=== PATIENT | female | born 2000 | race Caucasian/White ===

== ENCOUNTER 2021-02-15 10:11 | Outpatient (CLI) | payer BC, MEDICAID, SELFPAY ==
--- NOTE | 2021-02-17 12:57 | P.PCNHOL_ITS ---
Holter/Event Monitor Holter/Event Monitor Date of procedure: 02/15/21 Procedure Type: 24 hour holter monitor Indications: Increased Heart rate Conclusion: 1. 24 hour holter monitor on 02/15/21. 2. Underlying rhythm is sinus rhythm. HR range 56-154 bpm; average HR 89 bpm. 3. There are 11 premature supraventricular complexes. No supraventricular tachycardia. 4. No premature ventricular complexes. No ventricular tachycardia. 5. No sinoatrial or atrioventricular blocks. No significant pauses greater than 2 seconds. 6. Patient reports symptoms of shortness of breath and dizziness which demonst rate sinus rhythm, HR range 99-119 bpm.
== END 2021-02-15 10:12 | disposition home or self-care (01) ==
PROVIDERS: PCP Pediatrics; Visit Provider Advanced Practice Midwife
DX: R00.0 Tachycardia, unspecified (principal)
CPT/HCPCS: 93225; 93226

== ENCOUNTER 2021-06-23 10:35 | Inpatient (IN) | payer BC, OTHER, SELFPAY ==
[2021-06-23] VITALS (27 sets, daily range): BP systolic 99–169; BP diastolic 55–108; PULSE 61–107; RESP 16–18; TEMP 36.2–36.8; BMI 27.9
--- NOTE | 2021-06-23 12:04 | LDADM ---
This patient, Dwayne Rouse, was admitted to Labor/Delivery/Recovery 107 on 06/23/21 at 10:35. Plans for labor, pain management and were discussed with patient. Patient/family oriented to hospital policies and general routines including ID bracelet, bed and alarms, visiting hours, pain management, procedures, bathroom and other care routines, personal items, smoking policy, room service/diet and guest tray routines, security routines, and visiting hours. Patient/Family are encouraged to report perceived risks to care and to ask questions if they do not understand what they are told or what they should do. See OBIX for further documentation.
[2021-06-23 12:09] LABS: Basophils Absolute Auto 0.1 K/mm3 (0.0-0.1); Basophils Percent Auto 0.5 % (0.2-1.2); Eosinophils Absolute Auto 0.1 K/mm3 (0-0.3); Eosinophils Percent Auto 0.3 % (0-4.4); Hemoglobin 10.7 g/dL (12.0-15.0); Immature Granulocyte Absolute 0.15 K/mm3 (0.00-0.031); Lymphocytes Absolute Auto 1.89 K/mm3 (0.9-3.2); Lymphocytes Percent Auto 12.6 % (18.3-44.2); Mean Corpuscular HGB Conc 32.4 g/dl (32-36); Mean Corpuscular Hemoglobin 28.4 pg (26-34); Mean Corpuscular Volume 87.5 fl (80-100); Mean Platelet Volume 11.5 fl (7.4-10.4); Monocytes Absolute Auto 0.8 K/mm3 (0.1-0.6); Monocytes Percent Auto 5.2 % (2.6-8.5); Neutrophils Absolute Auto 12.1 K/mm3 (1.3-6.7); Neutrophils Percent Auto 80.4 % (45.5-73.1); Platelet Count Result 265 k/mm3 (150-375); Red Blood Count 3.77 M/mm3 (4.2-5.4); White Blood Count 15.1 K/mm3 (4.5-10.0)
[2021-06-23] MEDS: OXYTOCIN 30 UNITS/NS 500 ML 30 UNITS/500 ML BAG 125 UNITS IV CONT (13:51)
[2021-06-23 14:11] LABS: Barbiturate Screen Urine Negative (Negative); Benzodiazepines Screen Urine Negative (Negative)
[2021-06-23 14:14] LABS: Amphetamine Screen Urine Negative (Negative); Cannabinoid Screen Urine Positive (Negative); Cocaine Screen Urine Negative (Negative); Methadone Screen Urine Negative (Negative); Opiate Screen Urine Negative (Negative); Phencyclidine Screen Urine Negative (Negative)
--- NOTE | 2021-06-23 14:26 | PM.OBPRVD ---
OB - Delivery Note Procedure Delivery date: 06/23/21 Procedure: vaginal delivery Induction method: none Delivery augmentation: rupture of membranes Delivery monitor: external FHT and external uterine Route of delivery: Episiotomy description: None Laceration Description: None Specimen: No Quantitative Blood Loss (ml): 117 Anesthesia type: None Disposition: floor Baby Date of : 06/23/21 Time of : 13:46 Weeks of gestation at delivery: 38 gender: Female Weight (pounds): 7 Weight (ounces): 3 presentation: vertex position: Left Occiput Anterior Placenta delivery description: Spontaneous cord vessel description: 3 Vessels, Tight (x2) and Clamped/Cut (at perineum) score one minute: 4 score five minutes: 7 Narrative: baby to warmer due to tight nuchal x 2
[2021-06-23] MEDS: IBUPROFEN 600 MG TABLET PO (16:55)
--- NOTE | 2021-06-23 17:12 | OBPPTRN ---
Patient ambulated to post room #286 . Support person present. Oriented to unit, room, information board, rooming in, admission packet and security measures. Patient verbalizes understanding.
[2021-06-24] VITALS: BP 130/64; PULSE 72; RESP 18; TEMP 36.8
[2021-06-24 04:36] VITALS: BP 109/70; PULSE 58; RESP 18; TEMP 36.6
[2021-06-24 05:36] LABS: Hematocrit 28.9 % (37.0-47.0); Hemoglobin 9.5 g/dL (12.0-15.0)
--- NOTE | 2021-06-24 06:27 | PM.OBPNVD ---
OB - PN: Subj Subjective Date/time seen: 06/24/21 06:27 Patient comments: no complaints baby status: doing well OB - PN: Obj Data Labs CBC & Chem 7: 06/24/21 03:59 Labs: Laboratory Results - last 24 hr 06/23/21 06/23/21 06/23/21 12:00 12:00 13:13 WBC 15.1 H RBC 3.77 L Hgb 10.7 L Hct 33.0 L MCV 87.5 MCH 28.4 MCHC 32.4 RDW 14.0 Plt Count 265 MPV 11.5 H Immature Gran % (Auto) 1.0 H Neut % (Auto) 80.4 H Lymph % (Auto) 12.6 L [place] % (Auto) 5.2 Eos % (Auto) 0.3 Baso % (Auto) 0.5 Lymph # (Auto) 1.89 [place] # (Auto) 0.8 H Eos # (Auto) 0.1 Baso # (Auto) 0.1 Abs Immat Gran (auto) 0.15 H Absolute Neuts (auto) 12.1 H Absolute Nucleated RBC 0.0 Nucleated RBC % 0.0 Urine Opiates Screen Negative Urine Methadone Screen Negative Ur Barbiturates Screen Negative Ur Phencyclidine Scrn Negative Ur Amphetamine Screen Negative U Benzodiazepines Scrn Negative Urine Cocaine Screen Negative U Cannabinoids Screen Positive A Blood Type O Positive Antibody Screen Negative 06/24/21 03:59 WBC RBC Hgb 9.5 L Hct 28.9 L MCV MCH MCHC RDW Plt Count MPV Immature Gran % (Auto) Neut % (Auto) Lymph % (Auto) [place] % (Auto) Eos % (Auto) Baso % (Auto) Lymph # (Auto) [place] # (Auto) Eos # (Auto) Baso # (Auto) Abs Immat Gran (auto) Absolute Neuts (auto) Absolute Nucleated RBC Nucleated RBC % Urine Opiates Screen Urine Methadone Screen Ur Barbiturates Screen Ur Phencyclidine Scrn Ur Amphetamine Screen U Benzodiazepines Scrn Urine Cocaine Screen U Cannabinoids Screen Blood Type Antibody Screen OB - PN A/P Plan day: 1 Plan: routine care and discharge home Time Spent With Patient Time: Total time spent is greater than 50% in coordination of care (as documented) at patient's floor/unit and/or counseling patient: Review of Systems Review of Systems: All systems reviewed & are unremarkable except as noted in HPI and below Exam Const: General: cooperative Nutritional Appearance: average body habitus Psych: Thought process: Normal thought process present Thought content: Yes Normal thought content present Insight: Good insight present (Psych)
--- NOTE | 2021-06-24 06:28 | P.DS_ITS ---
DS: Admitting Diagnosis Discharge Date 06/24/21 Admitting Diagnosis labor, SROM OB - DS: Summary OB Procedures : None OB Procedures Intrapartum: Spontaneous Vag Delivery OB Procedures: : None Time Spent with Patient Time attestation: Total time spent providing and/or coordinating discharge services: DS: Data Data Completed and Pending Labs on day of discharge: Labs from last 24 hours 06/24/21 06/23/21 06/23/21 03:59 13:13 12:00 WBC RBC Hgb 9.5 L Hct 28.9 L MCV MCH MCHC RDW Plt Count MPV Immature Gran % (Auto) Neut % (Auto) Lymph % (Auto) [place] % (Auto) Eos % (Auto) Baso % (Auto) Lymph # (Auto) [place] # (Auto) Eos # (Auto) Baso # (Auto) Abs Immat Gran (auto) Absolute Neuts (auto) Absolute Nucleated RBC Nucleated RBC % Urine Opiates Screen Negative Urine Methadone Screen Negative Ur Barbiturates Screen Negative Ur Phencyclidine Scrn Negative Ur Amphetamine Screen Negative U Benzodiazepines Scrn Negative Urine Cocaine Screen Negative U Cannabinoids Screen Positive A RPR Blood Type O Positive Antibody Screen Negative 06/23/21 06/23/21 12:00 12:00 WBC 15.1 H RBC 3.77 L Hgb 10.7 L Hct 33.0 L MCV 87.5 MCH 28.4 MCHC 32.4 RDW 14.0 Plt Count 265 MPV 11.5 H Immature Gran % (Auto) 1.0 H Neut % (Auto) 80.4 H Lymph % (Auto) 12.6 L [place] % (Auto) 5.2 Eos % (Auto) 0.3 Baso % (Auto) 0.5 Lymph # (Auto) 1.89 [place] # (Auto) 0.8 H Eos # (Auto) 0.1 Baso # (Auto) 0.1 Abs Immat Gran (auto) 0.15 H Absolute Neuts (auto) 12.1 H Absolute Nucleated RBC 0.0 Nucleated RBC % 0.0 Urine Opiates Screen Urine Methadone Screen Ur Barbiturates Screen Ur Phencyclidine Scrn Ur Amphetamine Screen U Benzodiazepines Scrn Urine Cocaine Screen U Cannabinoids Screen RPR Pending Blood Type Antibody Screen Discharge Plan Discharge Attending physician on discharge: Karthikeyan Escobar Discharging Clinician: Lorrie Ramirez Patient Disposition: Home, Self-Care Activity: pelvic rest Diet: regular Patient Instructions: Antibiotic Form Stand Alone Forms: General Discharge Information Follow-up/Referrals: Lorrie Ramirez CNM [Certified Nurse Flooring Professional] - 4 Weeks Discharge Medications: Continued sertraline 100 mg tablet 100 mg PO DAILY RF: 0 PNV [id number] [] 28 mg iron- 800 mcg Tablet 1 tablet PO DAILY RF: 0 Date of admission: 06/23/21 10:35 Primary Care Provider: Hallie Rachel Admitting Provider: Karthikeyan Escobar Attending physician on admission: Karthikeyan Escobar Condition: Stable
[2021-06-24 09:55] VITALS: BP 120/67; PULSE 68; RESP 16; TEMP 36.3; O2SAT 99
[2021-06-24] MEDS: DOCUSATE SODIUM 100 MG CAPSULE PO (09:55)
[2021-06-24] MEDS: POLYSACCHARIDE IRON COMPLEX 150 MG CAPSULE PO (09:55)
--- NOTE | 2021-06-24 12:06 | PCCCNOTE ---
Addendum entered by LASHON Garcia 06/24/21 13:03: DCFS reports the information did not meet the criteria for an investigation. RN Sharon chandler. Original Note: Per Care Coordination. Pt. tested positive for THC during her UDS. Baby also tested positive for THC with UDC. Meconium is pending. Pt. reports using THC during due to anxiety and nausea. Pt. reports her invas tech was aware. FOB Richard at bedside and pt. reports this is their first baby. Pt. reports having support from both sides of their families and has everything needed for baby. Pt. reports being established with [facility]. Pt. denies prior involvement with DCFS. resources provided to pt. DCFS online report # [id number].
[2021-06-26 10:40] LABS: Rapid Plasma Reagin Non-Reactive (NonReactive)
[2021-06-27 07:48] VITALS: BP 123/80; PULSE 92; RESP 16; TEMP 37.3; O2SAT 99
== END 2021-06-24 17:32 | disposition home or self-care (01) | DRG 807 ==
LOC: ANHLDR 11:23 → ANHOB2 17:25
PROVIDERS: Admitting Provider Obstetrics & Gynecology; PCP Pediatrics; Referring Provider Advanced Practice Midwife; Visit Provider Obstetrics & Gynecology
DX: O69.1XX0 Labor and delivery complicated by cord around neck, with compression, not applicable or unspecified (principal); Z37.0 Single live birth; Z3A.38 38 weeks gestation of pregnancy; O36.8330 Maternal care for abnormalities of the fetal heart rate or rhythm, third trimester, not applicable or unspecified; Z23 Encounter for immunization
CPT/HCPCS: 36415; 80307; 85014; 85018; 85025; 86592; 86850; 86900; 86901; 90471; 90653; A9270; G0008; J2590